=== PATIENT | male | born 1985 | race Caucasian/White ===

== ENCOUNTER 2022-02-25 18:38 | Emergency (ER) | payer OTHER, SELFPAY ==
[2022-02-25 20:06] VITALS: BP 158/89; PULSE 81; RESP 19; TEMP 36.9; O2SAT 99; BMI 33.2
--- NOTE | 2022-02-25 20:11 | XR_ITS ---
PROCEDURE INFORMATION: Exam: XR Chest Exam date and time: 02/25/2022 8:17 PM Age: 36 years old Clinical indication: Dyspnea; Additional info: Dyspnea, L lung pain, covid 02/19 TECHNIQUE: Imaging protocol: Radiologic exam of the chest. Views: 2 views. COMPARISON: No relevant prior studies available. FINDINGS: Lungs: No consolidation. Pleural spaces: No pneumothorax. Heart/Mediastinum: No cardiomegaly. Bones/joints: No acute fracture. IMPRESSION: No acute findings.
--- NOTE | 2022-02-25 20:11 | CT_ITS ---
PROCEDURE INFORMATION: Exam: CTA Chest With Contrast Exam date and time: 02/25/2022 8:25 PM Age: 36 years old Clinical indication: Dyspnea; Additional info: Dyspnea, HX of c19 02/19, L lung pain TECHNIQUE: Imaging protocol: Computed tomographic angiography of the chest with contrast. 3D rendering (Not supervised by radiologist): MIP and/or 3D reconstructed images were created by the technologist. Radiation optimization: All CT scans at this facility use at least one of these dose optimization techniques: automated exposure control; mA and/or kV adjustment per patient size (includes targeted exams where dose is matched to clinical indication); or iterative reconstruction. Contrast material: ISOVUE; Contrast volume: 70 ml; Contrast route: INTRAVENOUS (IV); COMPARISON: CR XR CHEST 2V 02/25/2022 8:17 PM FINDINGS: Pulmonary arteries: Normal. No pulmonary emboli. Aorta: No aortic aneurysm. No aortic dissection. Lungs: No consolidation. No masses. Pleural spaces: No pneumothorax. No pleural effusion. Heart: No cardiomegaly. No pericardial effusion. Lymph nodes: Partially calcified mediastinal lymph nodes likely related to prior granulomatous exposure. Bones/joints: No acute fracture. Soft tissues: No significant swelling. IMPRESSION: No acute findings.
[2022-02-25 20:17] LABS: Influenza A, PCR Not Detected (NotDetected); Influenza B, PCR Not Detected (NotDetected)
--- NOTE | 2022-02-25 20:17 | ECG_ITS ---
APPROVED REPORT Exam: Resting ECG HR:76 bpm ECG Measurements Heart Rate 76 AXES AZ 171 P 39 QRSd 95 QRS 76 QT 358 T 56 QTc 389 Conclusion SINUS RHYTHM NORMAL ECG UNCONFIRMED REPORT Electronically signed by : Brock Davis MD 03/01/2022 08:13:12
[2022-02-25 20:22] LABS: Basophils # 0.2 K/mm3 (0-0.2); Basophils % 1.2 % (0.1-2.0); Eosinophils # 0.2 K/mm3 (0.0-0.4); Eosinophils % 1.7 % (0.1-12.0); Hematocrit 49.5 % (42.0-52.0); Hemoglobin 15.6 g/dL (14.1-18.0); Lymphocytes # 3.4 K/mm3 (0.7-4.5); Mean Corpuscular HGB Conc 31.5 g/dL (31.8-35.4); Mean Corpuscular Hemoglobin 29.4 pg (27.0-31.2); Mean Corpuscular Volume 93.5 fl (80-94); Mean Platelet Volume 8.2 fl (7.4-10.4); Monocytes % 8.1 % (1.7-9.3); Neutrophils # 7.8 K/mm3 (1.8-7.8); Platelet Count 279 K/mm3 (142-424); Red Cell Distribution Width 13.5 % (11.5-17.5); White Blood Count 12.6 K/mm3 (4.8-10.8)
[2022-02-25 20:26] LABS: Alanine Aminotransferase 67 U/L (12-78); Albumin Level 4.3 g/dl (3.5-5.0); Albumin/Globulin Ratio 1.3 (1.1-1.8); Alkaline Phosphatase 144 U/L (38-126); Anion Gap 10.7 mEq/L (5-15); Aspartate Amino Transferase 43 U/L (17-59); Blood Urea Nitrogen 9 mg/dl (9-20); Calcium 9.5 mg/dl (8.4-10.2); Carbon Dioxide 26 mmol/L (22.0-30.0); Chloride 108 mmol/L (98-107); Creatinine Clearance Estimated 149 mL/min (50-200); Estimated Glomerular Filt Rate 85 ml/min (>60); GFR (African American) 103 ML/MIN (>60); Globulin 3.4 g/dL (1.3-3.2); Glucose 136 mg/dl (74-100); Potassium 3.7 mmoL/L (3.5-5.1); Sodium 141 mmol/L (136-145); Total Protein,Serum 7.7 g/dl (6.3-8.2)
[2022-02-25 20:30] LABS: Bilirubin,Total < 0.1 mg/dl (0.2-1.3)
[2022-02-25 20:41] LABS: Troponin I < 0.01 ng/ml (0.00-0.034)
[2022-02-25 20:45] LABS: Procalcitonin 0.056 ng/mL (0.0-2.0)
--- NOTE | 2022-02-25 20:48 | HMH.EDSOB ---
ED Disposition Clinical Impression: COVID-19, Pleurisy Disposition: Home, Self-Care Condition on Discharge: Good Instructions: DI for COVID-19 (Suspected or Confirmed ) Additional Instructions: use meds and see pcp Prescriptions: levoFLOXacin [Levaquin 500mg tab] 500 mg PO DAILY #7 tab Transmission Status: Pending to [facility] predniSONE [Prednisone 20mg Tab] 20 mg PO BID #10 tab Transmission Status: Pending to [facility] Referrals: Provider,Referral, [Primary Care Provider] - - Critical Care Critical Care Time: No Attestation: On 02/25/22, the high probability of a clinically significant, sudden or life threatening deterioration of the following system(s) required my full and direct attention, intervention and personal management. The time I documented below is in addition to time spent performing reported procedures but includes the following listed in this critical care notation. Medical Decision Making - Medical Records Medical records reviewed: Yes: I reviewed the patient's medical records. - Je Inquiry Pt receiving controlled substance: No Vital Signs: 02/25/22 20:06 02/25/22 22:20 Temperature 98.5 F 98.4 F Temperature Source Oral Pulse Rate 86 Pulse Rate [Right] 81 Respiratory Rate 19 18 Blood Pressure 135/85 Blood Pressure [Right Arm] 158/89 H Blood Pressure Mean [Right Arm] 112 Blood Pressure Source [Right Arm] Automatic Cuff 02 Sat by Pulse Oximetry 99 Oxygen Delivery Method Room Air Room Air - Lab Data Lab results reviewed: Yes: I reviewed the patient's lab results. Lab Results 02/25/22 20:00: ESR 6 02/25/22 20:00: Troponin I < 0.01, C-Reactive Protein 5.0 H, Procalcitonin 0.056 02/25/22 20:00: SARS-CoV-2 (PCR) Detected A, Influenza A Untype (PCR) Not detected, Influenza Type B (PCR) Not detected 02/25/22 20:00: WBC 12.6 H, RBC 5.30, Hgb 15.6, Hct 49.5, MCV 93.5, MCH 29.4, MCHC 31.5 L, RDW 13.5, Plt Count 279, MPV 8.2, Neut % (Auto) 62.0, Lymph % (Auto) 27.0, Winston % (Auto) 8.1, Eos % (Auto) 1.7, Baso % (Auto) 1.2, Neut # (Auto) 7.8, Lymph # (Auto) 3.4, Winston # (Auto) 1.0, Eos # (Auto) 0.2, Baso # (Auto) 0.2 02/25/22 20:00: Sodium 141, Potassium 3.7, Chloride 108 H, Carbon Dioxide 26, Anion Gap 10.7, BUN 9, Creatinine 1.00, Estimated Creat Clear 149, Estimated GFR 85, Est GFR ( Amer) 103, Glucose 136 H, Calcium 9.5, Total Bilirubin < 0.1 L, AST 43, ALT 67, Alkaline Phosphatase 144 H, Total Protein 7.7, Albumin 4.3, Globulin 3.4 H, Albumin/Globulin Ratio 1.3 Result diagrams: 02/25/22 20:00 02/25/22 20:00 Orders (Tests/Meds): ED MEDICATIONS Generic Name Dose Route Start Last Admin Trade Name Freq PRN Reason Stop Dose Admin Sodium Chloride 1,000 mls @ 999 mls/hr 02/25/22 20:15 02/25/22 20:42 Sod Chlor 0.9% 1000ml Bag IV 02/25/22 21:15 999 mls/hr .Q1H1M JOSHUA Administration Discontinued Medications Generic Name Dose Route Start Last Admin Trade Name Freq PRN Reason Stop Dose Admin Dexamethasone Sodium Phosphate 10 mg 02/25/22 20:11 02/25/22 20:43 Dexamethasone 4mg/Ml 5ml Mdv IV 02/25/22 20:12 10 mg ONCE ONE Administration Iopamidol 70 ml 02/25/22 20:30 02/25/22 20:33 Iopamidol-370 (76%);100ml Bottle IV 02/25/22 20:31 70 ml ONCE ONE Administration Ketorolac Tromethamine 30 mg 02/25/22 20:13 02/25/22 20:43 Ketorolac 30mg/Ml Vial IV 02/25/22 20:14 30 mg ONCE ONE Administration Levofloxacin 500 mg 02/25/22 22:20 02/25/22 22:23 Levofloxacin 500mg Tab PO 02/25/22 22:21 500 mg ONCE ONE Administration Sodium Chloride 50 ml 02/25/22 20:30 02/25/22 20:32 0.9 % Sodium Chloride 50 Ml Vial IV 02/25/22 20:31 50 ml ONCE ONE Administration Sodium Chloride 10 ml 02/25/22 20:30 02/25/22 20:33 Sodium Chloride 0.9% 10ml Syr (Rad Only) IV 02/25/22 20:31 10 ml ONCE ONE Administration ORDERS Category Date Time Status Troponin I Q3H Lab
[2022-02-25 20:54] LABS: Erythrocyte Sedimentation Rate 6 mm/hr (0-15)
[2022-02-25 20:55] LABS: Coronavirus 19, PCR Detected (NotDetected)
[2022-02-25 22:20] VITALS: BP 135/85; PULSE 86; RESP 18; TEMP 36.9; O2SAT 97
== END 2022-02-25 22:43 | disposition home or self-care (01) ==
LOC: HMH.CTC 18:45 → ER 18:50
PROVIDERS: Emergency Provider Emergency Medicine
DX: U07.1 COVID-19 (principal); R09.1 Pleurisy
CPT/HCPCS: 71046; 71275; 80053; 84145; 84484; 85025; 85651; 86140; 93005; 96365; 96375; 99284; C9803; Q9967; U0003; U0005

== ENCOUNTER 2022-04-03 11:59 | Emergency (ER) | payer OTHER, SELFPAY ==
[2022-04-03 12:35] VITALS: BP 119/93; PULSE 83; RESP 18; TEMP 36.9; O2SAT 99; BMI 32.5
--- NOTE | 2022-04-03 12:38 | EXP.UTC ---
Discharge Plan Disposition Patient Disposition: Home, Self-Care Condition: Good Prescriptions Prescriptions: New azithromycin [Zithromax] 250 mg tablet 250 mg PO UD DOSE PK Qty: 6 0RF Rx Instructions: Take two (2) tablets today, then one (1) tablet days #2 thru #5 benzonatate [benzonatate] 100 mg capsule 100 mg PO TIDP PRN (Reason: Cough) Qty: 30 0RF methylprednisolone 4 mg Tablets,Dose Pack 4 mg PO DIRECTED Qty: 21 0RF No Action prednisone 20 MG tablet 20 mg PO BID Qty: 10 0RF levofloxacin 500 MG tablet 500 mg PO DAILY Qty: 7 0RF Referrals Follow up/Referrals: Provider,Referral, MD [Primary Care Provider] - See instructions Activity Restrictions/Add. Instructions Additional Instructions/Restrictions: Drink plenty of fluids. Take tylenol or ibuprofen for pain or fever. Take the medications as directed. Follow up with your regular doctor. GO TO THE ER FOR ANY WORSENING SYMPTOMS Clinical Impressions Clinical Impression: Bronchitis Stand Alone Forms Stand Alone Forms: Work/School Release Discharge ED Provider: Akash Escalona [facility] General Stated complaint: sore throat, ESTEBAN, ear pain, Lt lung pain Time Seen by Provider: 04/03/22 12:36 History of Present Illness Provider Complaint: he states that for the past 2 days he has had a sore throat, chills, chest tightness and a low grade fever. Related Data Previous Rx's Medication Instructions Recorded levofloxacin 500 mg tablet 500 mg PO DAILY #7 tabs 02/25/22 prednisone 20 mg tablet 20 mg PO BID #10 tabs 02/25/22 azithromycin 250 mg tablet 250 mg PO UD DOSE PK #6 tabs 04/03/22 (Zithromax) benzonatate 100 mg capsule 100 mg PO TIDP PRN Cough #30 caps 04/03/22 methylprednisolone 4 mg tablets in 4 mg PO DIRECTED #21 tabs 04/03/22 a dose pack Allergies Allergy/AdvReac Type Severity Reaction Status Date / Time No Known Allergies Allergy Verified 02/25/22 20:07 [facility] Social History Smoking Status: Never smoker alcohol intake: never current occupational status: employed Travel in the last 8 weeks: None ROS Obtained: Yes All systems reviewed & no additional complaints except as documented Constitutional Constitutional: Reports chills and Reports fever(s) Eyes Eyes: Denies eye discharge ENT Ears, Nose, Mouth, and Throat: Reports as per HPI Cardiovascular Cardiovascular: Denies chest pain Respiratory Respiratory: Denies chest congestion and Reports cough Gastrointestinal Gastrointestingal: Reports nausea; Denies abdominal pain, constipation, cramping, diarrhea or vomiting Musculoskeletal Musculoskeletal: Denies arthralgias Integumentary/Breasts Skin/Breast: Denies rash Neurologic Neurologic: Denies paresthesias Physical Exam General General appearance: alert and in no apparent distress Head Head exam: atraumatic, normocephalic and normal inspection Eye Eye exam: Present normal appearance, PERRL and EOMI ENT ENT exam: Present mucous membranes moist and normal external ear exam Expanded ENT Exam TM/Canal exam: Bilateral TM: erythema and bulging Nose exam: Absent sinus tenderness Mouth exam: Present normal external inspection; Absent drooling Teeth exam: Present normal inspection Throat exam: Present tonsillar erythema, tonsillomegaly and tonsillar exudate Neck Neck exam: Present normal inspection, full ROM and trachea midline; Absent tenderness, meningismus or lymphadenopathy Chest Chest inspection: Present normal inspection and symmetric chest wall rise; Absent tenderness Respiratory Respiratory exam: Present normal lung sounds bilaterally; Absent respiratory distress, wheezes or stridor Cardiovascular Cardiovascular exam: Present regular rate and normal rhythm; Absent systolic murmur or diastolic murmur Abdominal Exam Abdominal exam: Present soft and normal bowel sounds; Absent distention, tenderness, guarding, rebound or
[2022-04-03 12:45] LABS: UTC Strep Screen (Rapid) Negative (Negative)
[2022-04-03 13:30] VITALS: BP 119/93; PULSE 83; RESP 18; TEMP 36.9; O2SAT 99
== END 2022-04-03 13:31 | disposition home or self-care (01) ==
PROVIDERS: Emergency Provider Nurse Practitioner Family
DX: J40 Bronchitis, not specified as acute or chronic (principal)
CPT/HCPCS: 87880; 99212; G0463

== ENCOUNTER 2022-07-23 06:36 | Emergency (ER) | payer OTHER, SELFPAY ==
[2022-07-23 06:38] VITALS: BP 129/70; PULSE 78; RESP 16; TEMP 36.7; O2SAT 97; BMI 34.0
--- NOTE | 2022-07-23 06:52 | XR_ITS ---
FINAL REPORT CLINICAL HISTORY: right lung pain COMPARISON: 02/26/2022 FINDINGS: PA and lateral views of the chest were obtained. The cardiac and mediastinal silhouettes are within normal limits. The lungs are clear. There is no pleural effusion or pneumothorax. No acute osseous abnormality is identified. IMPRESSION: No radiographic evidence of acute cardiac or pulmonary disease. Reviewed, Interpreted and Dictated by Madelin Norwood MD Transcribed by Yue Hernandez Authenticated and [facility]
--- NOTE | 2022-07-23 07:10 | PC.NURSE ---
Labs collected via straight stick to [facility]. Labs sent
[2022-07-23 07:26] LABS: Basophils # 0.2 K/mm3 (0-0.2); Basophils % 2.8 % (0.1-2.0); Eosinophils # 0.5 K/mm3 (0.0-0.4); Eosinophils % 6.4 % (0.1-12.0); Hemoglobin 16.3 g/dL (14.1-18.0); Lymphocytes % 37.6 % (10-50); Mean Corpuscular HGB Conc 32.7 g/dL (31.8-35.4); Mean Corpuscular Hemoglobin 30.1 pg (27.0-31.2); Mean Corpuscular Volume 92.1 fl (80-94); Mean Platelet Volume 8.1 fl (7.4-10.4); Monocytes # 0.6 K/mm3 (0.1-1.0); Monocytes % 7.7 % (1.7-9.3); Neutrophils # 3.6 K/mm3 (1.8-7.8); Neutrophils % 45.4 % (37.0-80.0); Platelet Count 281 K/mm3 (142-424); Red Blood Count 5.43 M/mm3 (4.60-6.20); Red Cell Distribution Width 12.9 % (11.5-17.5); White Blood Count 7.9 K/mm3 (4.8-10.8)
[2022-07-23 07:27] LABS: Alanine Aminotransferase 203 U/L (12-78); Albumin Level 4.5 g/dl (3.5-5.0); Albumin/Globulin Ratio 1.3 (1.1-1.8); Alkaline Phosphatase 118 U/L (38-126); Anion Gap 7.4 mEq/L (5-15); Aspartate Amino Transferase 103 U/L (17-59); Bilirubin,Total 0.5 mg/dl (0.2-1.3); Blood Urea Nitrogen 15 mg/dl (9-20); Calcium 8.9 mg/dl (8.4-10.2); Carbon Dioxide 32 mmol/L (22.0-30.0); Chloride 104 mmol/L (98-107); Creatinine Clearance Estimated 138 mL/min (50-200); Estimated Glomerular Filt Rate 76 ml/min (>60); GFR (African American) 92 ML/MIN (>60); Globulin 3.4 g/dL (1.3-3.2); Glucose 119 mg/dl (74-100); Potassium 4.4 mmoL/L (3.5-5.1); Sodium 139 mmol/L (136-145); Total Protein,Serum 7.9 g/dl (6.3-8.2)
--- NOTE | 2022-07-23 07:35 | HMH.EDGENADL ---
Discharge Plan Disposition Patient Disposition: Home, Self-Care Chief Complaint: PAIN Prescriptions Prescriptions: No Action No Known Home Medications Referrals Follow up/Referrals: Provider,MD Sanjay [Primary Care Provider] - See instructions Anish Lobato MD [Physician] - See instructions Clinical Impressions Clinical Impression: Hemoptysis, Epistaxis Instructions Patient Instructions: DI for Nosebleed Discharge ED Provider: Gordon Lindo General Adult HPI General Chief complaint: PAIN Stated complaint: nose bleed,coughing up blood,right lung hurts Time Seen by Provider: 07/23/22 07:20 Mode of Arrival: Ambulatory Source of Information: Patient and Significant Other Limitations: No Limitations Description of Symptoms (Recalled from ER Triage Doc. by RN): pt c/o nosebleeds, coughing up blood, and rt lung pain x 1 week History of Present Illness HPI narrative: atraumatic nosebleed last pm and now with episode of coughing blood but denied flu like sx and no fever - Onset (ago): day(s) Location: chest Severity: moderate Consistency: intermittent Associated symptoms: denies other symptoms Related Data Home Medications Medication Instructions Recorded Confirmed No Known Home Medications 07/23/22 07/23/22 Allergies Allergy/AdvReac Type Severity Reaction Status Date / Time No Known Allergies Allergy Verified 02/25/22 20:07 [facility] Disclaimer: The information contained in this section may have been updated after the patient was seen, as this information can be updated by other users. Social History (Updated 04/03/22 @ 22:02 by Akash Escalona APRN) Smoking Status: Current every day smoker alcohol intake: never current occupational status: employed Travel in the last 8 weeks: None ROS Obtained: Yes All systems reviewed & no additional complaints except as documented Physical Exam General General appearance: alert Head Head exam: normocephalic Eye Eye exam: Present PERRL and EOMI ENT ENT exam: Present mucous membranes moist and other (nasal passage clear ) Neck Neck exam: Present trachea midline Respiratory Respiratory exam: Present normal lung sounds bilaterally; Absent respiratory distress Cardiovascular Cardiovascular exam: Present regular rate Abdominal Exam Abdominal exam: Present soft Extremities Exam Extremities exam: Present full ROM Neurological Exam Neurological exam: Present alert, oriented X3 and CN II-XII intact; Absent motor sensory deficit Psychiatric Psychiatric exam: Present normal affect Skin Skin exam: Absent rash Medical Decision Making Medical Records Medical records reviewed: Yes I reviewed the patient's medical records. Je Inquiry Pt receiving controlled substance: No Vital Signs: 07/23/22 06:38 Temperature 98.0 F Temperature Source Oral Pulse Rate [Right] 78 Respiratory Rate 16 Blood Pressure [Right Arm] 129/70 Blood Pressure Mean [Right Arm] 89 02 Sat by Pulse Oximetry 97 Lab Data Lab results reviewed: Yes I reviewed the patient's lab results. Lab Results 07/23/22 07:08: WBC 7.9, RBC 5.43, Hgb 16.3, Hct 50.0, MCV 92.1, MCH 30.1, MCHC 32.7, RDW 12.9, Plt Count 281, MPV 8.1, Neut % (Auto) 45.4, Lymph % (Auto) 37.6, Starke % (Auto) 7.7, Eos % (Auto) 6.4, Baso % (Auto) 2.8 H, Neut # (Auto) 3.6, Lymph # (Auto) 3.0, Starke # (Auto) 0.6, Eos # (Auto) 0.5 H, Baso # (Auto) 0.2 07/23/22 07:08: Sodium 139, Potassium 4.4, Chloride 104, Carbon Dioxide 32 H, Anion Gap 7.4, BUN 15, Creatinine 1.10, Estimated Creat Clear 138, Estimated GFR 76, Est GFR ( Amer) 92, Glucose 119 H, Calcium 8.9, Total Bilirubin 0.5, AST 103 H, ALT 203 H, Alkaline Phosphatase 118, Total Protein 7.9, Albumin 4.5, Globulin 3.4 H, Albumin/Globulin Ratio 1.3 Result diagrams: 07/23/22 07:08 07/23/22 07:08 Orders (Tests/Meds): ORDERS Category Date Time Status Chest XR 2 view (NOT portable) [XR chest 2V] Sta
[2022-07-23 08:11] VITALS: BP 113/72; PULSE 83; RESP 17; TEMP 36.8; O2SAT 99
== END 2022-07-23 08:11 | disposition home or self-care (01) ==
PROVIDERS: Emergency Provider Emergency Medicine
DX: R04.0 Epistaxis (principal); R04.2 Hemoptysis; F17.210 Nicotine dependence, cigarettes, uncomplicated
CPT/HCPCS: 71046; 80053; 85025; 99284; 99285

== ENCOUNTER 2022-08-18 17:26 | Emergency (ER) | payer OTHER, SELFPAY ==
[2022-08-18 18:45] VITALS: BP 131/72; PULSE 88; RESP 18; TEMP 37; O2SAT 97; BMI 35.4
--- NOTE | 2022-08-18 19:03 | EXP.UTC ---
Discharge Plan Disposition Patient Disposition: Home, Self-Care Condition: Good Prescriptions Prescriptions: No Action No Known Home Medications Referrals Follow up/Referrals: Provider,Referral, MD [Primary Care Provider] - See instructions Activity Restrictions/Add. Instructions Additional Instructions/Restrictions: *Monitor Temp, Over the counter Motrin or Tylenol as directed/as needed Tylenol every 4 hours and Motrin every 6 hours (as long as your family doctor has told you that you can take it) for fever or pain. and straight to ER if unable to lower temp less than 101.0 after medication given *Warm salt water gargles may help to soothe the throat *Throat Lozenges? *Warm fluids like tea with honey may help to soothe the throat? *Sleep elevated *Humidifier/Vaporizer Your throat swab was sent for culture. Those results are typically sent to your primary care. Be sure to follow up in 2-3 days with your family doctor/primary care physician if no improvement so they can review those result and treat if necessary. If you don?t have a primary care doctor, I recommend you get one but in the mean time, you will have to return to a walk in clinic ? You was given an outpatient order for diarrhea panel, please collect specimen and bring back to outpatient lab then call back to the [facility] or follow up with family doctor for results ? Follow up with family doctor in the next 48-72 hours if no improvement or any worsening of symptoms Follow up IMMEDIATELY for new or worsening symptoms or no Noticeable improvement over the next 48-72 hours. 911 for difficulty breathing or swallowing Clinical Impressions Clinical Impression: Viral syndrome Stand Alone Forms Stand Alone Forms: Work/School Release Instructions Patient Instructions: DI for Viral Syndrome, Diarrhea Discharge ED Provider: Tanya Tompkins [facility] HPI General Stated complaint: Diarrhea; cough; weakness Mode of Arrival: Ambulatory Source of Information: Patient Limitations: No Limitations Time Seen by Provider: 08/18/22 19:03 Description of Symptoms (Recalled from Triage Doc. by RN): PATIENT C/O RUNNY NOSE, COUGH, FEVER AND DIARRHEA X 2 DAYS HEENT Symptoms (Recalled from RN notes): Yes Resp Symptoms (Recalled from RN notes): Yes Skin Symptoms (Recalled from RN notes): No MS Symptoms (Recalled from RN notes): No Functional Status (Recalled from RN notes): WNL History of Present Illness Provider Complaint: Patient states that he has been having fever, cough, sinus congestion and runny nose, diarrhea and sore throat for the last few days States that today he wasnt feeling any better so he came in to get checked out Related Data Home Medications Medication Instructions Recorded Confirmed No Known Home Medications 07/23/22 07/23/22 Allergies Allergy/AdvReac Type Severity Reaction Status Date / Time No Known Allergies Allergy Verified 02/25/22 20:07 Worker's Comp Is this a Worker's Comp case?: No [facility] Disclaimer: The information contained in this section may have been updated after the patient was seen, as this information can be updated by other users. Medical History (Updated 08/18/22 @ 19:23 by Tanya Tompkins APRN) Anxiety Depression Hypertension Kidney stone Liver disease Migraine Prostate disorder Urinary tract infection Social History (Updated 08/18/22 @ 18:59 by Yana Harris RN) Smoking Status: Current every day smoker alcohol intake: never current occupational status: employed Travel in the last 8 weeks: None ROS Obtained: Yes All systems reviewed & no additional complaints except as documented and Yes Systems reviewed as appropriate & no additional complaints except as documented Constitutional Constitutional: Reports system reviewed and no additional complaints, except as documented, Reports as per HPI, Reports body ache, Reports chills and Reports fever(s) ENT
[2022-08-18 19:16] LABS: UTC Influenza A Antigen Negative (Negative); UTC Strep Screen (Rapid) Negative (Negative)
[2022-08-18 19:17] LABS: UTC Influenza B Antigen Negative (Negative)
[2022-08-18 19:30] VITALS: BP 131/72; PULSE 88; RESP 18; TEMP 37; O2SAT 97
== END 2022-08-18 19:32 | disposition home or self-care (01) ==
PROVIDERS: Emergency Provider Nurse Practitioner
DX: B34.9 Viral infection, unspecified (principal); R19.7 Diarrhea, unspecified; R05.9 Cough, unspecified; R53.1 Weakness
CPT/HCPCS: 87804; 87880; 99212; 99213; G0463

== ENCOUNTER 2022-09-08 10:57 | Emergency (ER) | payer OTHER, SELFPAY ==
[2022-09-08 11:02] VITALS: BP 134/67; PULSE 89; RESP 14; TEMP 36.8; O2SAT 97; BMI 34.0
[2022-09-08 11:44] VITALS: BP 134/67; PULSE 89; RESP 20; TEMP 36.8; O2SAT 97; BMI 34.0
--- NOTE | 2022-09-08 12:12 | EXP.UTC ---
Discharge Plan Disposition Patient Disposition: Home, Self-Care Condition: Good Prescriptions Prescriptions: No Action No Known Home Medications Referrals Follow up/Referrals: Provider,MD Sanjay [Primary Care Provider] - See instructions Anish Lobato MD [Physician] - See instructions Ulysses Rodriguez MD [Physician] - See instructions Activity Restrictions/Add. Instructions Additional Instructions/Restrictions: Afrin nasal spray may help to stop/control nose bleeds Over the counter Dramamine may help with occasional dizziness Follow up with your Family Doctor or ENT if symptoms continue or get worse Straight to ER if any life threatening symptoms Clinical Impressions Clinical Impression: Epistaxis Stand Alone Forms Stand Alone Forms: Work/School Release Instructions Patient Instructions: DI for Nosebleed, Nosebleed Discharge ED Provider: Tanya Tompkins [facility] General Stated complaint: nose bleeds, dizzy Mode of Arrival: Ambulatory Source of Information: Patient Limitations: No Limitations Time Seen by Provider: 09/08/22 12:12 Description of Symptoms (Recalled from Triage Doc. by RN): dizziness, and nose bleed. He had a nose bleed last month for 2 wks and started back today. HEENT Symptoms (Recalled from RN notes): Yes Resp Symptoms (Recalled from RN notes): No Skin Symptoms (Recalled from RN notes): No MS Symptoms (Recalled from RN notes): No Functional Status (Recalled from RN notes): n/a History of Present Illness Provider Complaint: Patient states that he was at work earlier and got hot and felt a little dizzy and his nose started bleeding but he was able to get it stopped States that over the last couple of months he has been having some nose bleeds on and off but he is able to get them to stop pretty easily State that where he was at work today and had a little dizziness and then a nose bleed they made him come in States that he feels fine now not having any dizziness and no longer having nose bleed Related Data Home Medications Medication Instructions Recorded Confirmed No Known Home Medications 07/23/22 07/23/22 Allergies Allergy/AdvReac Type Severity Reaction Status Date / Time No Known Allergies Allergy Verified 09/08/22 11:46 Worker's Comp Is this a Worker's Comp case?: No [facility] Disclaimer: The information contained in this section may have been updated after the patient was seen, as this information can be updated by other users. Medical History (Updated 09/08/22 @ 12:21 by Tanya Tompkins APRN) Anxiety Depression Hypertension Kidney stone Liver disease Migraine Prostate disorder Urinary tract infection Social History Smoking Status: Current every day smoker alcohol intake: never current occupational status: employed Travel in the last 8 weeks: None ROS Obtained: Yes All systems reviewed & no additional complaints except as documented and Yes Systems reviewed as appropriate & no additional complaints except as documented Constitutional Constitutional: Reports system reviewed and no additional complaints, except as documented, Reports as per HPI and Denies headache(s) ENT Ears, Nose, Mouth, and Throat: Reports system reviewed and no additional complaints, except as documented, Reports as per HPI, Denies disequilibrium, Reports dizziness, Reports epistaxis and Denies headache(s) Cardiovascular Cardiovascular: Reports system reviewed and no additional complaints, except as documented, Reports as per HPI and Denies syncope Respiratory Respiratory: Reports system reviewed and no additional complaints, except as documented and Reports as per HPI Gastrointestinal Gastrointestingal: Reports system reviewed and no additional complaints, except as documented and as per HPI Genitourinary Male Genitourinary: Reports system reviewed and no additional complaints, except as documented and Reports as per
[2022-09-08 12:30] VITALS: BP 134/67; PULSE 89; RESP 20; TEMP 36.8; O2SAT 97
== END 2022-09-08 12:29 | disposition home or self-care (01) ==
LOC: ER 11:05 → UTC 11:06
PROVIDERS: Emergency Provider Nurse Practitioner
DX: R42 Dizziness and giddiness (principal); R04.0 Epistaxis
CPT/HCPCS: 99212; 99213; G0463

== ENCOUNTER 2023-05-12 09:46 | Emergency (ER) | payer OTHER, SELFPAY ==
[2023-05-12 10:00] VITALS: BP 162/86; PULSE 80; RESP 18; TEMP 36.6; O2SAT 97; BMI 35.1
--- NOTE | 2023-05-12 10:11 | EXP.UTC ---
Discharge Plan Disposition Patient Disposition: Home, Self-Care Condition: Good Prescriptions Prescriptions: New mupirocin 2 % ointment 1 applic topical TID 10 Days Qty: 22 0RF Rx Instructions: apply directly to area as directed cephalexin 500 mg capsule 500 mg PO QID 7 Days Qty: 28 0RF sulfamethoxazole-trimethoprim [Bactrim DS] 800-160 mg tablet 1 tab PO BID 7 Days Qty: 14 0RF Referrals Follow up/Referrals: Provider,Referral, MD [Primary Care Provider] - See instructions Activity Restrictions/Add. Instructions Additional Instructions/Restrictions: *Start antibiotic(s) immediately and be sure to take as ordered for the FULL length of time although you may be feeling better or start to see improvement in the next 24-48 hours *Monitor closely. Outlined redness so that you can monitor easier. Follow up immediately for new or worsening symptoms including but not limited to redness, swelling, streaking from site fever or chills. *Warm compress 15 minutes 3-4 times day *Never squeeze or pop these on your own. Seek immediate medical attention next time this occurs *Monitor Temp. Tylenol every 4 hours as needed and ibuprofen every 6 hours as needed (as long as your primary care doctor has told you that it is ok to take both. For fever, aches, pain. ER if no less that 101 despite Tylenol and ibuprofen ?Follow up with your family doctor/primary care physician in the next 48-72 hours if no improvement Clinical Impressions Clinical Impression: Cellulitis Qualifiers: Site of cellulitis: unspecified site Qualified Code(s): L03.90 - Cellulitis, unspecified Instructions Patient Instructions: Cellulitis, Cephalexin, Trimethoprim/Sulfamethoxazole (Alternative Therapy) Discharge ED Provider: Tanya Tompkins [facility] General Stated complaint: possible spider bite Mode of Arrival: Ambulatory Source of Information: Patient Limitations: No Limitations Time Seen by Provider: 05/12/23 10:11 Description of Symptoms (Recalled from Triage Doc. by RN): Pt has a spider bite on his right calf. States that it hurts and red. HEENT Symptoms (Recalled from RN notes): No Resp Symptoms (Recalled from RN notes): No Skin Symptoms (Recalled from RN notes): Yes MS Symptoms (Recalled from RN notes): No Functional Status (Recalled from RN notes): n/a History of Present Illness Provider Complaint: Patient states that he thinks he may have bitten by a spider on his right lower leg States that it started like a pimple and he had his bust it then it started to spread States that the area is sore and hurts when he touches it and looking more red so he came in to get it checked out Related Data Previous Rx's Medication Instructions Recorded cephalexin 500 mg capsule 500 mg PO QID 7 days #28 caps 05/12/23 mupirocin 2 % topical ointment 1 applic topical TID 10 days #22 05/12/23 grams sulfamethoxazole 800 1 tab PO BID 7 days #14 tabs 05/12/23 mg-trimethoprim 160 mg tablet (Bactrim DS) Allergies Allergy/AdvReac Type Severity Reaction Status Date / Time No Known Allergies Allergy Verified 05/12/23 10:11 Worker's Comp Is this a Worker's Comp case?: [facility] Dis[facility]: The information contained in this section may have been updated after the patient was seen, as this information can be updated by other users. Medical History (Updated 05/12/23 @ 10:22 by Tanya Tompkins APRN) Anxiety Depression Hypertension Kidney stone Liver disease Migraine Prostate disorder Urinary tract infection Social History Smoking Status: Current every day smoker alcohol intake: never current occupational status: employed Travel in the last 8 weeks: None ROS Obtained: Yes All systems reviewed & no additional complaints except as documented and Yes Systems reviewed as appropriate & no additional complaints except as documented Constitutional Constitutional: Rep
[2023-05-12 10:27] VITALS: BP 162/86; PULSE 80; RESP 18; TEMP 36.6; O2SAT 97
== END 2023-05-12 10:27 | disposition home or self-care (01) ==
PROVIDERS: Emergency Provider Nurse Practitioner
DX: L03.115 Cellulitis of right lower limb (principal); F17.210 Nicotine dependence, cigarettes, uncomplicated; I10 Essential (primary) hypertension
CPT/HCPCS: 99212; 99214; G0463